=== PATIENT | male | born 1980 | race Two or more races ===

== ENCOUNTER 2024-07-18 02:25 | Inpatient (IN) | payer SELFPAY ==
[2024-07-17 22:14] VITALS: BMI 30.7
[2024-07-18] MEDS: chlordiazePOXIDE HCL 25 MG CAPSULE PO SCH (00:29)
[~2024-07-18 02:25] MED LIST: BENZOCAINE/MENTHOL (CHLORASEPTIC ) LOZENGE MM PRN; BENZONATATE 200 MG CAPSULE PO PRN; BISMUTH SUBSALICYLATE 524 MG/30 ML PO PRN; DICYCLOMINE HCL 10 MG CAPSULE PO PRN; LOPERAMIDE HCL 2 MG CAPSULE PO PRN; MAG HYDROX/AL HYDROX/SIMETH 30 ML UNIT-DOSE CUP PO PRN; MAGNESIUM HYDROX 2400MG/30ML ORAL SUSPENSION 30 ML CUP PO PRN; METHOCARBAMOL 500 MG TABLET PO PRN; NICOTINE POLACRILEX 2 MG GUM BUC PRN; NICOTINE POLACRILEX 2 MG LOZENGE BC PRN; ONDANSETRON *ODT* 4 MG TABLET SL PRN; P-EPHED 60MG/TRIPROLIDI 2.5MG TABLET PO PRN; POLYETHYLENE GLYCOL (HEALTHYLAX) 3350 17 GM PACKET PO PRN; chlordiazePOXIDE HCL 25 MG CAPSULE ONE; guaiFENesin 600 MG TABLET.ER (FP) PO PRN; hydrOXYzine PAMOATE 25 MG CAPSULE (FP) PO PRN
[2024-07-18] MEDS ORDERED: chlordiazePOXIDE HCL 25 MG CAPSULE ONE (04:12)
[2024-07-18] MEDS: PRENATAL VITAMINS W/ FOLIC ACID TABLET (FP) PO SCH (09:48)
[2024-07-18] MEDS: ACETAMINOPHEN 325 MG TABLET (FP) PO PRN (17:52)
[2024-07-18] MEDS: IBUPROFEN 400 MG TABLET (FP) PO PRN (22:24)
[2024-07-18] MEDS: THIAMINE 100 MG TABLET PO SCH (22:24)
[2024-07-18] MEDS: MELATONIN 5 MG TABLETS PO SCH (22:25)
[2024-07-19] MEDS: chlordiazePOXIDE HCL 25 MG CAPSULE PO SCH (06:12)
[2024-07-19] MEDS: chlordiazePOXIDE HCL 25 MG CAPSULE PO PRN (18:23)
[2024-07-19] MEDS: IBUPROFEN 600 MG TABLET (FP) PO PRN (22:42)
[2024-07-20] MEDS ORDERED: chlordiazePOXIDE HCL 10 MG CAPSULE PO PRN
[2024-07-20] MEDS: chlordiazePOXIDE HCL 10 MG CAPSULE PO SCH (05:40)
[2024-07-21] MEDS ORDERED: chlordiazePOXIDE HCL 10 MG CAPSULE PO SCH (05:00)
[2024-07-21 09:13] VITALS: BP 140/91; PULSE 89; RESP 19; TEMP 97.3
[2024-07-22] MEDS ORDERED: chlordiazePOXIDE HCL 10 MG CAPSULE PO ONE (05:00)
== END 2024-07-21 09:43 | disposition home or self-care (01) | DRG 774 ==
LOC: Y3E 02:25 → Y3N 02:31
PROVIDERS: ADMIT Allergy & Immunology; ATTEND Surgery
PROC: HZ2ZZZZ Detoxification Services for Substance Abuse Treatment (ICD-10-PCS; principal; 2024-07-18)
DX: F10.230 Alcohol dependence with withdrawal, uncomplicated (principal); F14.20 Cocaine dependence, uncomplicated; F17.210 Nicotine dependence, cigarettes, uncomplicated; Z56.0 Unemployment, unspecified; Z59.01 Sheltered homelessness
CPT/HCPCS: 80305; 93005; 93010

== ENCOUNTER 2025-02-25 22:16 | Inpatient (IN) | payer SELFPAY ==
[2025-02-25 22:45] VITALS: BMI 27.7
[2025-02-25] MEDS ORDERED: BENZOCAINE/MENTHOL (CHLORASEPTIC ) LOZENGE MM PRN (23:11)
[2025-02-25] MEDS ORDERED: NICOTINE POLACRILEX 4 MG GUM BUC PRN (23:11)
[2025-02-25] MEDS ORDERED: BISMUTH SUBSALICYLATE 524 MG/30 ML PO PRN (23:11)
[2025-02-25] MEDS ORDERED: ONDANSETRON *ODT* 4 MG TABLET SL PRN (23:11)
[2025-02-25] MEDS ORDERED: NALOXONE (NARCAN) HCL 4 MG/0.1 ML SPRAY NS PRN (23:11)
[2025-02-25] MEDS ORDERED: POLYETHYLENE GLYCOL (HEALTHYLAX) 3350 17 GM PACKET PO PRN (23:11)
[2025-02-25] MEDS ORDERED: MAGNESIUM HYDROX 2400MG/30ML ORAL SUSPENSION 30 ML CUP PO PRN (23:11)
[2025-02-25] MEDS ORDERED: BENZONATATE 200 MG CAPSULE PO PRN (23:11)
[2025-02-25] MEDS ORDERED: LOPERAMIDE HCL 2 MG CAPSULE PO PRN (23:11)
[2025-02-25] MEDS ORDERED: IBUPROFEN 400 MG TABLET (FP) PO PRN (23:11)
[2025-02-25] MEDS ORDERED: DICYCLOMINE HCL 10 MG CAPSULE PO PRN (23:11)
[2025-02-25] MEDS ORDERED: guaiFENesin 600 MG TABLET.ER (FP) PO PRN (23:11)
[2025-02-25] MEDS ORDERED: MAG HYDROX/AL HYDROX/SIMETH 30 ML UNIT-DOSE CUP PO PRN (23:11)
[2025-02-25] MEDS ORDERED: cloNIDine HCL 0.1 MG TABLET ONE (23:26)
[2025-02-25] MEDS: cloNIDine HCL 0.1 MG TABLET PO ONE (23:32)
[2025-02-26] MEDS ORDERED: chlordiazePOXIDE HCL 25 MG CAPSULE PO PRN (08:41)
[2025-02-26 09:43] LABS: HEMATOCRIT 41.7 % (40.1-51.0); HEMOGLOBIN 13.2 g/dL (13.7-17.5); MCHC 31.7 g/dl (32.3-36.5); MEAN CELL VOLUME 93.9 fl (79.0-92.2); MEAN PLT VOLUME 10.5 fl (9.4-12.4); PLATELET COUNT 175 x10^3/uL (163-337); RDW 12.7 % (12.1-15.9)
[2025-02-26 10:24] LABS: POTASSIUM 3.8 mmol/L (3.5-5.1)
[2025-02-26] MEDS: PRENATAL VITAMINS W/ FOLIC ACID TABLET (FP) PO SCH (10:31)
[2025-02-26] MEDS: chlordiazePOXIDE HCL 25 MG CAPSULE PO SCH (10:31)
[2025-02-26 10:32] LABS: BILIRUBIN,TOTAL 0.2 mg/dL (0.2-1); TOT PROT 7.1 g/dl (6.4-8.2)
[2025-02-26 11:28] LABS: CALCIUM 9.2 mg/dL (8.5-10.1)
[2025-02-26 11:57] LABS: ALBUMIN 3.4 g/dl (3.4-5.0); BLOOD UREA NITROGEN 11.6 mg/dL (7-18); CREATININE 0.8 mg/dL (0.55-1.3)
[2025-02-26] MEDS: NALTREXONE HCL 50 MG TABLET PO ONE (17:10)
[2025-02-26] MEDS: MELATONIN 5 MG TABLETS PO SCH (22:37)
[2025-02-26] MEDS: THIAMINE 100 MG TABLET PO SCH (22:37)
[2025-02-27] MEDS: NALTREXONE HCL 50 MG TABLET PO SCH (10:24)
[2025-02-27] MEDS: IBUPROFEN 600 MG TABLET (FP) PO PRN (22:25)
[2025-02-28] MEDS: chlordiazePOXIDE HCL 25 MG CAPSULE PO SCH (05:32)
[2025-02-28] MEDS: hydrOXYzine PAMOATE 25 MG CAPSULE (FP) PO PRN (22:34)
[2025-02-28] MEDS: ACETAMINOPHEN 325 MG TABLET (FP) PO PRN (22:34)
[2025-03-01] MEDS: chlordiazePOXIDE HCL 10 MG CAPSULE PO SCH (05:52)
[2025-03-01] MEDS: chlordiazePOXIDE HCL 10 MG CAPSULE PO PRN (15:42)
[2025-03-01] MEDS ORDERED: cloNIDine HCL 0.1 MG TABLET PO PRN (15:53)
[2025-03-02] MEDS: chlordiazePOXIDE HCL 10 MG CAPSULE PO SCH (05:55)
[2025-03-02 20:37] VITALS: RESP 18
[2025-03-03] MEDS: chlordiazePOXIDE HCL 10 MG CAPSULE PO ONE (05:47)
[2025-03-03 09:02] VITALS: BP 153/90; PULSE 96; TEMP 97.6
== END 2025-03-03 09:29 | disposition home or self-care (01) | DRG 774 ==
LOC: YASAS 22:16 → Y3N 23:15
PROVIDERS: ADMIT Allergy & Immunology; ATTEND Allergy & Immunology
PROC: HZ2ZZZZ Detoxification Services for Substance Abuse Treatment (ICD-10-PCS; principal; 2025-02-25)
DX: F10.230 Alcohol dependence with withdrawal, uncomplicated (principal); F14.20 Cocaine dependence, uncomplicated; F17.210 Nicotine dependence, cigarettes, uncomplicated; F19.24 Other psychoactive substance dependence with psychoactive substance-induced mood disorder; Z56.0 Unemployment, unspecified; Z59.01 Sheltered homelessness
CPT/HCPCS: 36415; 80053; 80305; 80307; 85027; 86780; 93005; 93010